=== PATIENT | male | born 1995 | race Two or more races ===

== ENCOUNTER → 2021-07-23 | Outpatient (CLI) | payer OTHER ==
--- NOTE | 2021-07-23 22:15 | DIREP ---
PROCEDURE:MRI JOINT LOWER EXTREMITY-LT W/O COMPARISON:None. INDICATIONS:S83.512 SPRAIN OF ANTERIOR CRUCIATE LIGAMENT OF LEFT KNEE TECHNIQUE:A complete multiplanar multisequence MRI of the knee was performed without contrast. FINDINGS: MENISCI:Bucket-handle tear throughout the lateral meniscus with fragment flipped into the midline. No visible displaced medial meniscal tear. CRUCIATE LIGAMENTS:Full-thickness tear of the proximal ACL. The PCL demonstrates normal signal and morphology. COLLATERAL LIGAMENTS:Medial collateral ligament and the fibular collateral ligament are intact. HYALINE CARTILAGE:No visible chondral defect. PATELLOFEMORAL:Mild patella Af[place]. Mild lateral patellar tilt. Patellar fat edema suggesting impingement. TT/TG measures approximately 1.1 cm. BONES:No visible acute fracture. No marrow edema. OTHER:Small volume joint effusion. CONCLUSION: 1. Bucket-handle tear with displaced fragment of the lateral meniscus. 2. Full-thickness tear proximal ACL. Dictated by: Tamir Ruff M.D. on 07/23/2021 at 10:11 PM
== END | disposition home or self-care (01) ==
LOC: RAD 15:49
PROVIDERS: ATTEND Physician Assistant Surgical
DX: S83.252A Bucket-handle tear of lateral meniscus, current injury, left knee, initial encounter (principal); T14.8XXA Other injury of unspecified body region, initial encounter; X58.XXXA Exposure to other specified factors, initial encounter; Y93.89 Activity, other specified; Y92.89 Other specified places as the place of occurrence of the external cause; Y99.8 Other external cause status
CPT/HCPCS: 73721